=== PATIENT | male | born 1995 | race Caucasian/White ===

== ENCOUNTER 2021-11-22 07:57 | Outpatient (CLI) | payer OTHER ==
--- NOTE | 2021-11-22 09:38 | MRI Report ---
PROCEDURE: Ankle RT W/O INDICATIONS: PAIN IN RIGHT ANKLE TECHNIQUE: Noncontrast sagittal T1 spin echo and T2 fast spin echo with fat saturation, axial proton density fas t spin echo and T2 fast spin echo with fat saturation, coronal T1 spin echo and T2 fast spin echo wit h fat saturation through the ankle/hindfoot. COMPARISON: None. Findings: Bones: Faint T2 hyperintense signal seen within the mid/hindfoot osseous structures (i.e. 701, image 15), which may reflect contusion or reactive edema. No distinct fracture line is appreciated. Muscles: No evidence of muscular atrophy or edema. Anterior tibiofibular ligament: Intact. Posterior tibiofibular ligament: Intact. Calcaneofibular ligament: Intact. Talar dome: No significant abnormality. Anterior talofibular ligament: Intact. Posterior talofibular ligament: Intact. Deltoid ligament: Intact. Peroneal tendons: No evidence of tear or tenosynovitis. Tibialis posterior: No evidence of tear or tenosynovitis. Flexor digitorum: No evidence of tear or tenosynovitis. Flexor hallucis longus: No evidence of tear or tenosynovitis. Sinus Tarsi: No mass or fibrosis. Achilles tendon: Intact. Joint effusion: Small tibiotalar joint effusion. Plantar fascia: No evidence of tear or inflammation. IMPRESSION: 1. Faint edematous signal within the midfoot, which may reflect contusion or reactive edema. No disti nct fracture line is appreciated. 2. Small tibiotalar joint effusion. Reviewed by: Jakub Peralta MD on 11/22/2021 9:37 AM PST Approved by: Jakub Peralta MD on 11/22/2021 9:37 AM PST Station ID: [id number]
== END 2021-11-22 07:58 | disposition home or self-care (01) ==
LOC: DI 07:57
PROVIDERS: ATTEND Family Medicine
DX: R93.6 Abnormal findings on diagnostic imaging of limbs (principal); M25.471 Effusion, right ankle

== ENCOUNTER 2022-07-11 12:40 | Outpatient (CLI) | payer OTHER ==
[~2022-07-11 12:40] MED LIST: GADOBUTROL 10 MMOL/10 ML VIAL ONE
--- NOTE | 2022-07-11 14:35 | MRI Report ---
PROCEDURE: Brain W/WO INDICATIONS: MIGRAINE CONTRAST: IV CONTRAST: Gadavist ml: 9.3 TECHNIQUE: Noncontrast axial T1 spin echo, axial T2 fast spin echo, sagittal and axial FLAIR, coronal T2 fast sp in echo, axial gradient echo, axial diffusion and ADC through the brain. After the administration of contrast, axial and coronal T1 spin echo with fat saturation through the brain. COMPARISON: None. FINDINGS: Image quality: Excellent. CSF spaces: Basal cisterns are patent. No extra-axial fluid collections. Ventricles are normal in size and shape. Brain: No midline shift. No intracranial bleeds or masses. No abnormal intracranial enhancement. There is cerebral volume loss for age. There is periventricular white matter chronic small vessel is chemic change. The brainstem appears normal. Diffusion-weighted images demonstrate no acute ischemi c insults. No chronic ischemic insults. Normal intravascular flow voids are present. Skull and face: Calvarial marrow is normal in signal. Orbits appear normal. Sinuses: Sinuses and mastoids appear clear. IMPRESSION: 1. No acute process. No recent infarct. No explanation for migraine. Reviewed by: Xander Morgan MD on 07/11/2022 2:33 PM PDT Approved by: Xander Morgan MD on 07/11/2022 2:33 PM PDT Station ID: [id number]
[2022-07-11] MEDS ORDERED: GADOBUTROL 10 MMOL/10 ML VIAL IVP ONE (15:23)
--- NOTE | 2022-07-11 17:55 | MRI Report ---
PROCEDURE: Cervical Spine W/O INDICATIONS: CERVICALGIA TECHNIQUE: Noncontrast sagittal T1 spin echo and T2 fast spin echo, sagittal STIR, foraminal oblique sagittal T2 fast spin echo, and axial gradient echo or T2 fast spin echo through the cervical spine. COMPARISON: None. FINDINGS: Image quality: Excellent. Alignment and Curvature: There is normal bony alignment. Bone Marrow: Marrow demonstrates normal overall signal. Spinal Cord: Visualized spinal cord has normal size and signal. No cerebellar tonsillar herniation. Paraspinous Soft Tissues: No paravertebral masses. Prevertebral soft tissues are normal in thicknes s. C2-C3: Normal in appearance. C3-C4: Normal in appearance. C4-C5: Normal in appearance. C5-C6: Normal in appearance. C6-C7: Normal in appearance. C7-T1: Normal in appearance. IMPRESSION: Unremarkable cervical spine MRI. No canal stenosis or foraminal stenosis. Reviewed by: Corby Sharma MD on 07/11/2022 5:53 PM PDT Approved by: Corby Sharma MD on 07/11/2022 5:53 PM PDT Station ID: [id number]
== END 2022-07-11 12:41 | disposition home or self-care (01) ==
LOC: DI 12:40
PROVIDERS: ATTEND Student in an Organized Health Care Education/Training Program
DX: G43.909 Migraine, unspecified, not intractable, without status migrainosus (principal)
CPT/HCPCS: 70553; 72141; A9585